=== PATIENT | female | born 1965 | race Caucasian/White ===

== ENCOUNTER 2019-05-12 18:36 | Emergency (ER) | payer MEDICAID ==
[~2019-05-12] VITALS: Ht 154.9 cm; Wt 63.5 kg
[2019-05-12 18:38] VITALS: Ht 154.9 cm; Wt 63.5 kg
[2019-05-13 01:48] LABS: BASOPHIL % 0.8 % (0-2); PLATELET COUNT 176 x10^3mcL (130-400); RED CELL DISTRIBUTION WIDTH 12.8 % (11.5-14.5)
[2019-05-13 01:57] LABS: CALCIUM 8.4 mg/dL (8.5-10.1); CARBON DIOXIDE 23.7 mmol/L (21-32); CHLORIDE SERUM 105 mmol/L (98-107); CREATININE SERUM 0.6 mg/dL (0.6-1.0); GFR1 > 60 mL/min; GLUCOSE SERUM 95 mg/dL (74-106); SODIUM SERUM 140 mmol/L (136-145)
[2019-05-13 04:42] VITALS: BP 127/60
== END 2019-05-13 04:42 | disposition home or self-care (01) ==
LOC: ED 18:36
PROVIDERS: Emergency Medicine
DX: R51 Headache (principal); R05 Cough; R68.83 Chills (without fever)
CPT/HCPCS: J1885; J2270; J2765; J7030; Q9967

== ENCOUNTER 2020-01-19 23:26 | Emergency (ER) | payer OTHER ==
[~2020-01-19] VITALS: Ht 154.9 cm; Wt 62.6 kg
[2020-01-20 00:26] LABS: BASOPHIL % 0.4 % (0-2); PLATELET COUNT 263 x10^3mcL (130-400); RED CELL DISTRIBUTION WIDTH 14.1 % (11.5-14.5)
[2020-01-20 00:28] VITALS: Ht 154.9 cm; Wt 62.6 kg
[2020-01-20 00:40] LABS: CALCIUM 9.1 mg/dL (8.5-10.1); CARBON DIOXIDE 26.2 mmol/L (21-32); CHLORIDE SERUM 101 mmol/L (98-107); GFR1 > 60 mL/min; GLUCOSE SERUM 106 mg/dL (74-106); POTASSIUM SERUM 4.2 mmol/L (3.5-5.1); SODIUM SERUM 136 mmol/L (136-145)
[2020-01-20 00:44] LABS: ALBUMIN 3.8 g/dL (3.4-5.0); ALKALINE PHOSPHATASE 95 U/L (46-116); ALT/SGPT 20 U/L (14-59); AST/SGOT 20 U/L (15-37); BILIRUBIN TOTAL 0.1 mg/dL (0.20-1.00); TOTAL PROTEIN, SERUM 8.2 g/dL (6.4-8.2)
[2020-01-20 00:55] LABS: T3 TOTAL 0.89 ng/mL
[2020-01-20 01:18] LABS: FREE T4 0.84 ng/dL (0.76-1.46); FREE THYROXINE INDEX 1.8 ug/dL (1.4-4.5); T4(THYROXINE) 5.9 ug/dL (4.7-13.3)
[2020-01-20 02:05] VITALS: BP 120/57
== END 2020-01-20 02:05 | disposition home or self-care (01) ==
LOC: ED 23:26
PROVIDERS: Emergency Medicine
DX: R07.89 Other chest pain (principal)
CPT/HCPCS: 84439; Q0092